=== PATIENT | male | born 1955 | race Caucasian/White ===

== ENCOUNTER 2018-05-23 20:30 | Emergency (ER) | payer OTHER ==
[~2018-05-23] VITALS: Ht 180.3 cm; Wt 64.0 kg
--- NOTE | 2018-05-23 22:04 | NUR ---
PT BIBS. COMP OF "WAS REFERRED BY PMD FOR FINGER GAURANG". PT AOX4. ON ATBX THERAPY FOR FINGER WOUND. -N/V -DIZZINESS -MENTAL STATUS CHANGES. MD AT BEDSIDE.
[2018-05-23] MEDS ORDERED: LIDOCAINE 1% INJ 50 ML MDV IJ ONE (22:17)
[2018-05-23 23:10] VITALS: BP 118/67
== END 2018-05-23 23:12 | disposition home or self-care (01) ==
LOC: ER 20:32
DX: L03.011 Cellulitis of right finger (principal); J45.909 Unspecified asthma, uncomplicated
CPT/HCPCS: 10060; 99283; A4606; A6402 ×2; J3490

== ENCOUNTER 2018-05-25 09:07 | Emergency (ER) | payer OTHER ==
[~2018-05-25] VITALS: Ht 180.3 cm; Wt 64.0 kg
[2018-05-25 09:12] VITALS: BP 108/70
--- NOTE | 2018-05-25 09:27 | NUR ---
Patient discharged to home in stable condition. Written and verbal after care instructions given. Patient verbalizes understanding of instruction.
== END 2018-05-25 09:27 | disposition home or self-care (01) ==
LOC: ER 09:07
DX: Z48.01 Encounter for change or removal of surgical wound dressing (principal)
CPT/HCPCS: 99282; A4606; A6402